=== PATIENT | female | born 1980 | race Caucasian/White ===

== ENCOUNTER 2016-06-24 14:22 | Emergency (ER) | payer OTHER ==
[~2016-06-24 14:22] MED LIST: BCP; NORVASC PO; PHENTERMINE PO; SEROQUEL300 MG PO; VITAMIN D400 UNI2
== END 2016-06-24 14:52 | disposition home or self-care (01) ==
LOC: SED 14:22
DX: S33.5XXA Sprain of ligaments of lumbar spine, initial encounter (principal); V49.40XA Driver injured in collision with unspecified motor vehicles in traffic accident, initial encounter
CPT/HCPCS: 99283